=== PATIENT | female | born 1945 | race Two or more races ===

== ENCOUNTER → 2017-11-02 | Outpatient (CLI) | payer OTHER | END | disposition home or self-care (01) | LOC: RAD 501 11:17 | DX: M25.572 Pain in left ankle and joints of left foot (principal) ==

== ENCOUNTER 2018-01-26 09:46 | Outpatient (CLI) | payer OTHER | END 2018-01-26 14:33 | disposition home or self-care (01) | LOC: MAMO-SONO 09:46 | DX: Z12.31 Encounter for screening mammogram for malignant neoplasm of breast (principal); Z87.898 Personal history of other specified conditions; N63.10 Unspecified lump in the right breast, unspecified quadrant; N63.20 Unspecified lump in the left breast, unspecified quadrant ==

== ENCOUNTER 2018-05-17 09:50 | Outpatient (CLI) | payer OTHER | END 2018-05-17 10:30 | disposition home or self-care (01) | LOC: NUCLEAR 09:50 | DX: M85.89 Other specified disorders of bone density and structure, multiple sites (principal); M81.0 Age-related osteoporosis without current pathological fracture ==

== ENCOUNTER 2020-08-17 11:56 | Emergency (ER) | payer OTHER ==
[~2020-08-17] VITALS: Ht 142.2 cm; Wt 52.2 kg
[2020-08-17] MEDS ORDERED: GABAPENTIN100 MG (13:57)
== END 2020-08-17 15:41 | disposition home or self-care (01) ==
LOC: ER 11:56
DX: H10.12 Acute atopic conjunctivitis, left eye (principal)

== ENCOUNTER 2021-04-09 08:50 | Outpatient (CLI) | payer OTHER ==
[~2021-04-09 08:50] MED LIST: GABAPENTIN100 MG
== END 2021-04-09 09:01 | disposition home or self-care (01) ==
LOC: SONOGRAMA 08:50
PROVIDERS: ATTEND Internal Medicine Gastroenterology
DX: R10.13 Epigastric pain (principal); R10.31 Right lower quadrant pain

== ENCOUNTER 2022-03-16 08:45 | Outpatient (CLI) | payer OTHER | END 2022-03-16 08:47 | disposition home or self-care (01) | LOC: NUCLEAR 08:45 | PROVIDERS: ATTEND Internal Medicine | DX: N18.2 Chronic kidney disease, stage 2 (mild) (principal); I87.2 Venous insufficiency (chronic) (peripheral) ==

== ENCOUNTER 2025-06-26 09:34 | Outpatient (CLI) | payer OTHER | END 2025-06-26 09:35 | disposition home or self-care (01) | LOC: NUCLEAR 09:34 | PROVIDERS: ATTEND Psychiatry & Neurology Clinical Neurophysiology | DX: G31.84 Mild cognitive impairment of uncertain or unknown etiology (principal); G30.1 Alzheimer's disease with late onset | CPT/HCPCS: 78803; A9557 ==